=== PATIENT | female | born 1985 | race Caucasian/White ===

== ENCOUNTER 2017-12-22 15:28 | Emergency (ER) | END 2017-12-22 18:55 | disposition home or self-care (01) ==

== ENCOUNTER 2018-10-17 00:35 | Emergency (ER) | payer MEDICAID, OTHER ==
[~2018-10-17] VITALS: Ht 162.6 cm; Wt 60.7 kg
[~2018-10-17 00:35] MED LIST: AMOX500C2 PO; CALC600T PO; FIORICET PO; FOL8 PO; IBUP-1544 PO; PREN-39 PO; [UNRECOGNIZED DRUG - REMARK] PO
[2018-10-17 00:39] VITALS: Ht 162.6 cm; Wt 60.7 kg
[2018-10-17] MEDS ORDERED: ONDANSETRON 4 MG INJ IV STA (03:54)
[2018-10-17] MEDS ORDERED: DIPHENHYDRAMINE 50 MG INJ IV STA (03:54)
[2018-10-17] MEDS ORDERED: METOCLOPRAMIDE 10 MG INJ IV STA (03:54)
[2018-10-17] MEDS ORDERED: SOD CHLORIDE 0.9% 1,000 ML IV STA (03:54)
[2018-10-17] MEDS ORDERED: KETOROLAC 15 MG INJ IV STA (04:19)
[2018-10-17] MEDS ORDERED: PROCHLORPERAZINE 10 MG INJ IV ONE (04:30)
[2018-10-17] MEDS ORDERED: EXCED PO (05:06)
[2018-10-17] MEDS ORDERED: ONDA4TAB14 PO (05:06)
--- NOTE | 2018-10-17 05:10 | ERD ---
ER Documentation Chief Complaint Chief Complaint headache x 3 hours. denies vomiting HPI This is a 33-year-old female with history of migraine headaches presents to the ED with an acute migraine headache approximately 3 hours prior to arrival. Patient states her headache is localized to her right periorbital region and migrates to her bilateral temples. She has associated photophobia, phonophobia with some nausea. She states today's headache is similar to her previous migraine headaches. Headache mildly resolved with Excedrin. No trauma. No focal logical deficits. No fevers or chills. No neck pain or stiffness. No other complaints. Patient states she gets about 2 migraine headaches a week. ROS All systems reviewed and are negative except as per history of present illness. Medications Home Meds Active Scripts Ondansetron (Ondansetron Odt) 4 Mg Tab.rapdis, 4 MG PO Q6H PRN for NAUSEA AND/OR VOMITING, #10 TAB Prov:AIMEIGRIKIANCARMEN-C 10/17/18 Acetaminophen/Aspirin/Caffeine* (Excedrin*) 1 Tab Tab, 1 TAB PO DAILY for headache, #20 TAB Prov:AIMEIGRIKIANCARMEN PA-C 10/17/18 Acetamin/Butalbital/Caffeine* (Fioricet*) [id number] Tab, 1 TAB PO Q6H PRN for PAIN, #30 TAB Prov:DANITA SERRANO 12/22/17 Amoxicillin* (Amoxicillin*) 500 Mg Cap, 500 MG PO Q8, #30 CAP Prov:THOM STUART DO 07/01/16 Ibuprofen* (Ibuprofen*) 800 Mg Tablet, 800 MG PO Q8, #30 TAB Prov:THOM STUART DO 07/01/16 Reported Medications Folic Acid* (Folic Acid*) 0.8 Mg Tablet, 0.8 MG PO DAILY, TAB 10/14/14 Calcium Carbonate (Oyster Shell Calcium) 600 Mg Tablet, 600 MG PO DAILY 10/14/14 Vits W-Ca,Fe,Fa(<1MG) ( Vitamins) 1 Tab Tablet, 1 TAB PO DAILY 10/14/14 [Sleeping Pills] No Conflict Check, PO 02/08/13 Allergies Allergies: Coded Allergies: sulfamethoxazole (Verified Allergy, Mild, RASH, 12/22/17) trimethoprim (Verified Allergy, Mild, RASH, 12/22/17) PMhx/Soc History of Surgery: Yes (APPY, LEFT OVARY) Anesthesia Reaction: No Hx Neurological Disorder: No Hx Respiratory Disorders: No Hx Cardiac Disorders: No Hx Psychiatric Problems: No Hx Miscellaneous Medical Probl: No Hx Alcohol Use: No Hx Substance Use: No Hx Tobacco Use: No Smoking Status: Never smoker Physical Exam Vitals Vital Signs Date Temp Pulse Resp B/P (MAP) Pulse Ox O2 O2 Flow FiO2 Time Delivery Rate 10/17/18 97.4 76 18 138/62 99 00:39 (87) Physical Exam Const: No acute distress Head: Atraumatic Eyes: Normal Conjunctiva ENT: Normal External Ears, Nose and Mouth. Neck: Full range of motion. No meningismus. Resp: Clear to auscultation bilaterally Cardio: Regular rate and rhythm, no murmurs Abd: Soft, non tender, non distended. Normal bowel sounds Skin: No petechiae or rashes Back: No midline or flank tenderness Ext: No cyanosis, or edema Neuro: M/S: Alert and oriented Face: EOMI, face and pharynx with normal sensation and function Motor: Normal strength throughout Sensation: Normal sensation throughout Speech: Normal Cerebel: Normal coordination Normal gait Normal finger to nose Psych: Normal Mood and Affect Results 24 hrs Laboratory Tests Test 10/17/18 04:04 POC Beta HCG, Qualitative NEGATIVE Current Medications Medications Dose Sig/Alize Start Time Status Last (Trade) Ordered Route PRN Stop Time Admin Dose Reason Admin Sodium 1,000 ml @ Q1H STAT 10/17/18 DC 10/17/18 Chloride 1,000 mls/hr IV 03:54 04:29 10/17/18 04:53 10 mg ONCE STAT 10/17/18 DC Metoclopramid IV 03:54 e HCl 10/17/18 04:21 (Reglan) Ondansetron 4 mg ONCE STAT 10/17/18 DC 10/17/18 HCl (Zofran IV 03:54 04:28 Inj) 10/17/18 03:56 25 mg ONCE STAT 10/17/18 DC Diphenhydrami IV 03:54 ne HCl 10/17/18 04:21 (Benadryl) Ketorolac 15 mg ONCE STAT 10/17/18 DC 10/17/18 Tromethamine IV 04:19 04:28 (Toradol) 10/17/18 04:21 10 mg ONCE ONCE 10/17/18 DC 10/17/18 Prochlorperaz IV 04:30 04:28 ine 10/17/18 04:31 (Compazine Inj) Procedures/MDM ED COURSE: The patient was given IV fluids Toradol, Compazine, Zofran The medication was well tolerated and the patient had market improvement in symptoms. The patient remained stable throughout ED course. MEDICAL DECISION MAKIN-year-old female with history of migraine headaches presents with exacerbation of her routine headache. History and physical most consistent with primary headache. Vital signs are stable. No focal neurological deficits on physical exam. Clinical presentation not consistent with subarachnoid hemorrhage, epidural or subdural hematoma, IC mass, CVA, encephalitis or meningitis. Symptoms improved after IV fluids, Zofran, Toradol, Compazine. Patient was discharge home with close follow up and mangement by PCP in 48 hours. Strict return precautions dicussed. PRESCRIPTIONS: Excedrin, Zofran SPECIALIST FOLLOW UP RECOMMENDED: None Patient has been advised to follow up with primary care in 1-2 days. Departure Diagnosis: Primary Impression: Headache Headache type: unspecified Headache chronicity pattern: acute headache Intractability: not intractable Qualified Codes: R51 - Headache Condition: Stable Patient Instructions: Self-Care for Headaches Referrals: [facility] (PCP) Additional Instructions: Call your primary care doctor TOMORROW for an appointment during the next 2-4 d ays and bring all the information and medications prescribed. If the symptoms get worse and your provider is unavailable, return to the Emergency Department immediately. CARMEN HERNANDEZ PA-C Oct 17, 2018 05:10
[2018-10-17 05:20] VITALS: BP 93/48; PULSE 82; RESP 18
== END 2018-10-17 05:22 | disposition home or self-care (01) ==
LOC: FTE 00:35
DX: R51 Headache (principal); R11.0 Nausea
CPT/HCPCS: 81025; 96374; 96375; J0780; J1200; J1885; J2405; J2765; J7030; Z7502